=== PATIENT | female | born 1985 | race Caucasian/White ===

== ENCOUNTER 2018-10-03 20:39 | Emergency (ER) | payer OTHER ==
[2018-10-03 20:50] VITALS: TEMP 99; BMI 28.1
--- NOTE | 2018-10-03 20:53 | PDOC ---
Rapid Medical Evaluation Chief Complaint: Chest Pain Time Seen by Provider: 10/03/18 20:48 Medical Evaluation: Allergies Allergy/AdvReac Type Severity Reaction Status Date / Time No Known Allergies Allergy Verified 09/12/11 10:10 10/03/18 20:50 I have performed a brief in-person evaluation of this patient. The patient presents with a chief complaint of: Chest pain today. Since improved. Had similar pain in past but maybe worse now. No sob, diaphoresis, n/v , palpitations, leg pain or swelling. No obvious RF for DVT/PE. Denies illicit drug use Pertinent physical exam findings:stable and well abraham w/ clear chest/lungs I have ordered the following:ekg The patient will proceed to the ED for further evaluation. Discharge Disposition - Diagnosis Chest pain Qualifiers: Chest pain type: unspecified Qualified Code(s): R07.9 - Chest pain, unspecified - Referrals - Patient Instructions - Post Discharge Activity
[2018-10-03] MEDS ORDERED: ACETAMINOPHEN 500 MG TABLET (FP) PO ONE (21:53)
--- NOTE | 2018-10-03 21:59 | PDOC ---
History of Present Illness - General Chief Complaint: Chest Pain Stated Complaint: CHEST PAIN Time Seen by Provider: 10/03/18 20:48 History Source: Patient Exam Limitations: No Limitations - History of Present Illness Initial Comments: 10/03/18 21:56 Pt is a 32yo F with no significant PMH presenting to ED with complaints of chest pain that has been on and off for about 1 year. She states the pain is is in the middle of her chest, feels like someone is sitting on it, does not radiate, associated with SOB and pain with inspiration. She states that she was diagnosed with costochondritis in the past. She does not take any medications for the pain. She denies diaphoresis, pain radiating to shoulders, abdominal pain, pain radiating to the back, syncope, hemoptysis, fevers, chills, cough, congestion, n/v/d, leg swelling, recent travel, recent surgery, smoking, ocp use. FH of [place] in father and grandmother. PMD: none PMH: none PSH: cesarian, tubal ligation Meds: none Allergies: nkda Social: denies Past History - Past Medical History Allergies/Adverse Reactions: Allergies Allergy/AdvReac Type Severity Reaction Status Date / Time No Known Allergies Allergy Verified 09/12/11 10:10 Home Medications: Ambulatory Orders NK [No Known Home Medication] 10/03/18 Asthma: No Cancer: No Cardiac Disorders: No Diabetes: No HTN: No Seizures: No Thyroid Disease: No - Suicide/Smoking/Psychosocial Hx Smoking History: Never smoked Hx Alcohol Use: No Drug/Substance Use Hx: No Hx Substance Use Treatment: No Review of Systems - Review of Systems Constitutional: No: Chills, Fever, Weakness HEENTM: No: Symptoms Reported Respiratory: Yes: Shortness of Breath. No: Cough Cardiac (ROS): Yes: See HPI, Chest Pain, Chest Tightness. No: Lightheadedness, Palpitations, Syncope ABD/GI: No: Constipated, Nausea, Rectal Bleeding, Vomiting, Abdominal cramping : No: Symptoms Reported Musculoskeletal: No: Back Pain, Joint Pain, Neck Pain Integumentary: No: Symptoms Reported Neurological: No: Symptoms reported *Physical Exam - Vital Signs Last Vital Signs Temp Pulse Resp BP Pulse Ox 99 F 77 126/82 99 10/03/18 20:48 10/03/18 20:48 10/03/18 20:48 10/03/18 20:48 - Physical Exam General Appearance: Yes: Nourished, Appropriately Dressed. No: Apparent Distress HEENT: positive: EOMI, ZACKERY Neck: positive: Trachea midline, Supple. negative: Lymphadenopathy (R), Lymphadenopathy (L) Respiratory/Chest: positive: Chest Tender, Lungs Clear, Normal Breath Sounds. negative: Accessory Muscle Use, Labored Respiration, Crackles, Wheezing Cardiovascular: positive: Regular Rhythm, Regular Rate, S1, S2. negative: Edema , JVD, Murmur Vascular Pulses: Carotid (R): 2+, Carotid (L): 2+, Dorsalis-Pedis (R): 2+, Doralis-Pedis (L): 2+ Gastrointestinal/Abdominal: positive: Normal Bowel Sounds, Soft. negative: Tender Musculoskeletal: negative: CVA Tenderness Extremity: positive: Normal Capillary Refill. 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 She states the pain is is in the middle of her chest, feels like someone is sitting on it, does not radiate, associated with SOB and pain with inspiration. She states that she was diagnosed with costochondritis in the past. She does not take any medications for the pain. She denies diaphoresis, pain radiating to shoulders, abdominal pain, pain radiating to the back, syncope, hemoptysis, fevers, chills, cough, congestion, n/v/d, leg swelling, recent travel, recent surgery, smoking, ocp use. Vitals: wnl PE: lungs cta, normal heart sounds, no edema, reproducible chest wall tenderness, pain with arm movements. Ddx includes but not limited to acs, pe, pna, ptx, msk, costochondritis, pneumomediastum, -labs -ekg, cxr -tylenol, ibuprofen. given reproducibility of pain, most likely msk in nature. labs all normal. cxr does not show consolidations or infiltrates, no free air ekg: nsr. no emerald or depressions most likely msk given chronicity and reproducibility. pt hemodynamically stable , safe for dc home. 'pt agrees to plan. given return precautions and cardiology referral. *DC/Admit/Observation/Transfer Diagnosis at time of Disposition: Chest pain Qualifiers: Chest pain type: unspecified Qualified Code(s): R07.9 - Chest pain, unspecified - Discharge Dispostion Disposition: HOME Condition at time of disposition: Good Decision to Admit order: No - Referrals Referrals: Sanchez Potter MD [Staff Physician] - - Patient Instructions Printed Discharge Instructions: DI for Atypical Chest Pain Additional Instructions: You were seen in the emergency room today for chest pain. Your blood tests are normal and the EKG appears normal as well. This is most likely a musculoskeletal pain. You can take NSAIDs like ibuprofen or Advil for the pain as needed. Try not to do heavy lifting. You can apply a heating pad as well. I recommend making an appointment with a primary care doctor and a success coach. The information is provided below. Come back to the emergency room if pain gets worse, you cannot catch a breath, you pass out or if any new concerning symptom develops. Thank you - Post Discharge Activity
[2018-10-03 22:19] LABS: BASO % 0.7 % (0-2.0); EOS % 2.3 % (0-4.5); HEMATOCRIT 36.7 % (32.4-45.2); HEMOGLOBIN 12.9 GM/dL (10.7-15.3); MCH 31.9 pg (25.7-33.7); MCHC 35.1 g/dl (32.0-36.0); MEAN PLT VOLUME 7.7 fl (7.5-11.1); MONO % 8.9 % (3.8-10.2); NEUT % 57.1 % (42.8-82.8); PLATELET COUNT 247 K/MM3 (134-434); RBC 4.03 M/mm3 (3.60-5.2); RDW 12.5 % (11.6-15.6); WHITE BLOOD COUNT 8.6 K/mm3 (4.0-10.0)
[2018-10-03 22:41] LABS: ALBUMIN 3.4 g/dl (3.4-5.0); ALK PHOS 76 U/L (45-117); ANION GAP 6 MMOL/L (8-16); BILIRUBIN,TOTAL 0.8 mg/dL (0.2-1); BLOOD UREA NITROGEN 16 mg/dL (7-18); CALCIUM 8.9 mg/dL (8.5-10.1); CHLORIDE 106 mmol/L (98-107); CO2 27 mmol/L (21-32); CREATININE 0.8 mg/dL (0.55-1.3); GLUCOSE,RANDOM 103 mg/dL (74-106); MAGNESIUM 2.2 mg/dL (1.8-2.4); SGOT/AST 18 U/L (15-37); SGPT/ALT 26 U/L (13-61); SODIUM 139 mmol/L (136-145); TOT PROT 6.6 g/dl (6.4-8.2)
[2018-10-03] MEDS ORDERED: IBUPROFEN 600 MG TABLET (FP) PO ONE ×2 (22:52→23:22)
[2018-10-03] MEDS ORDERED: ACETAMINOPHEN 325 MG TABLET (FP) ONE (23:21)
[2018-10-03 23:42] VITALS: BP 120/80; PULSE 94
--- NOTE | 2018-10-04 00:13 | PDOC ---
Documentation entered by Judith Garrett SCRIBE, acting as scribe for Paula Thornton MD. Paula Thornton MD: This documentation has been prepared by the abner, Judith Garrett SCRIBE, under my direction and personally reviewed by me in its entirety. I confirm that the documentation accurately reflects all work, treatment, procedures, and medical decision making performed by me. Attending Attestation - Resident Resident Name: Libertad Carty - ED Attending Attestation I have performed the following: I have examined & evaluated the patient, The case was reviewed & discussed with the resident, I agree w/resident's findings & plan - HPI HPI: 10/03/18 22:54 The patient is a 32 year old female with no significant past medical history who presents to the emergency department with intermittent chest pain for 1 year. The patient report that her chest pain is localized to her mid chest and feels like someone is sitting on her chest. She reports some associates shortness of breath and pain with inspiration. The patient states that her chest pain is worsened with movement. She endorses a past diagnosis of costochondritis and a family history of DC ( father and grandmother). She denies any fever, chills, nausea, vomiting, diarrhea, constipation, urinary symptoms. She denies any diaphoresis, abdominal pain, syncope radiation to her back or shoulders, hemoptysis, leg swelling, recent travel or recent surgeries. The patient denies any other complaints. - Physicial Exam PE: 10/04/18 00:41 Agree with resident exam - Medical Decision Making 10/04/18 00:41 Pt will be discharged home and referred to a hop farm worker.
--- NOTE | 2018-10-04 15:09 | EKG ---
Test Reason : Blood Pressure : / mmHG Vent. Rate : 064 BPM Atrial Rate : 064 BPM P-R Int : 130 ms QRS Dur : 088 ms QT Int : 434 ms P-R-T Axes : 035 065 051 degrees QTc Int : 447 ms SINUS RHYTHM WITH MARKED SINUS ARRHYTHMIA OTHERWISE NORMAL ECG NO PREVIOUS ECGS AVAILABLE Confirmed by LEONIE VANCE MD ([id number]) on 10/04/2018 3:09:38 PM Referred By: Confirmed By:LEONIE VANCE MD
== END 2018-10-03 23:42 | disposition home or self-care (01) ==
LOC: JER 20:39
DX: R07.9 Chest pain, unspecified (principal)
CPT/HCPCS: 36415; 71046-TC-FY; 80053; 83735; 84484; 84703; 85025; 93005; 93010; 99282-25

== ENCOUNTER 2018-12-27 01:56 | Emergency (ER) | payer OTHER ==
[2018-12-27] MEDS ORDERED: SODIUM CHLORIDE 1,000 ML IV STA (02:35)
[2018-12-27] MEDS ORDERED: IBUPROFEN 400 MG TABLET (FP) PO ONE ×2 (02:36→03:08)
[2018-12-27] MEDS ORDERED: MECLIZINE HCL 25 MG TABLET (FP) PO ONE (02:39)
--- NOTE | 2018-12-27 02:46 | PDOC ---
Attending Attestation - Resident Resident Name: William Frausto - ED Attending Attestation I have performed the following: I have examined & evaluated the patient, The case was reviewed & discussed with the resident, I agree w/resident's findings & plan - HPI HPI: 12/27/18 04:15 Pt comes with lightheadedness. States that she felt like her head was numb after she woke up and she got nervous and she came to the ER. She has no such feeling at this time.. Pt has no appetite change and no fever and no other complaints and no neuro deficits. - Physicial Exam PE: 12/27/18 04:17 Agree with resident exam. Pt has sligt dizziness with horizontal gaze and minimal horizontal nystagmus. She has no fever. HEENT otherwise normal. Neuro intact thoughout. Pt is A+Ox3 and she has no neuro deficits. - Medical Decision Making 12/27/18 04:18 labs normal. Pt feels well after hydration and after meclizine. Home with meclizine and neruro follow up as needed. Heart Score/ECG Review - ECG Intrepretation Rhythm: Regular Rhythm - Crandall Crandall: Normal - P and [place] Delta Wave(s) Present: No WPW: No - ST and T Early Repolarization: No Non Specific ST-T Wave changes: No - ECG Impressions Normal ECG: Yes Non-specific ST Elevation: No Ischemic Changes: No Bradycardia: No Torsades luis Pointes: No
--- NOTE | 2018-12-27 02:55 | PDOC ---
History of Present Illness - General History Source: Patient Exam Limitations: No Limitations - History of Present Illness Initial Comments: Jayce Shrestha is a 33 yo F with a pmh of migraines and a significant family hx of heart diseases who presents to the ER after she had a mild headache 2 hours prior to arrival. The patient states she is also experiencing mild dizziness described as a room spinning sensation which is worsened when the patient lies down or moves her head in certain directions. She states she also has occasionally been experiencing some mild blurry vision when the room spins. She states she also experienced a transient episode of numbness on the back of her head earlier today when she had a headache. Lastly, she states that yesterday she experienced some chest pain which she described as heaviness in quality. Her chest pain yesterday came on at rest and was not associated with any nausea , vomiting, diaphoresis, radiation, or worsening with physical activity. Patient denies recent fevers, chills, infections, SOB, difficulty breathing, neck pain, weakness, tingling, dysuria, frequency, urgency, syncope, unsteady gait, or slurring of her words. PCP: None PSH: C-sections, Tubal ligation Social Hx: Drinks recreationally. Denies smoking or illicit drug usage. Allergies: Seasonal, NKDA <William Frausto - Last Filed: 12/27/18 04:28> <Paula Thornton - Last Filed: 12/27/18 05:45> - General Chief Complaint: Lightheaded Stated Complaint: SEVERE HEADACHE Time Seen by Provider: 12/27/18 02:28 Past History - Past Medical History Asthma: No Cancer: No Cardiac Disorders: No COPD: No Diabetes: No HTN: No Seizures: No Thyroid Disease: No - Immunization History Td Vaccination: Yes TDAP Vaccination: Yes Immunization Up to Date: Yes - Suicide/Smoking/Psychosocial Hx Smoking History: Never smoked Hx Alcohol Use: No Drug/Substance Use Hx: No Hx Substance Use Treatment: No <William Frausto - Last Filed: 12/27/18 04:28> <Paula Thornton - Last Filed: 12/27/18 05:45> - Past Medical History Allergies/Adverse Reactions: Allergies Allergy/AdvReac Type Severity Reaction Status Date / Time No Known Allergies Allergy Verified 09/12/11 10:10 Home Medications: Ambulatory Orders Meclizine HCl [Antivert -] 25 mg PO QID #28 tablet 12/27/18 Review of Systems - Review of Systems Able to Perform ROS?: Yes Comments:: CONSTITUTIONAL: Absent: fever, no chills, no fatigue EYES: Present" visual changes ENT: Absent: ear pain, no sore throat CARDIOVASCULAR: Present: Chest pain Absent: no palpitations RESPIRATORY: Absent: cough, no SOB GI: Absent: abdominal pain, no nausea, no vomiting, no constipation, no diarrhea GENITOURINARY: Absent: dysuria, no frequency, no hematuria MUSKULOSKELETAL: Absent: back pain, no arthralgia, no myalgia SKIN: Absent: rash NEURO: Present: headache <William Frausto - Last Filed: 12/27/18 04:28> *Physical Exam - Physical Exam Comments: GENERAL: Well-appearing, well-nourished. No apparent distress. HEENT: Normocephalic, atraumatic. PERRL, EOM intact. CARDIOVASCULAR: Normal S1, S2. Regular rate and rhythm. PULMONARY: No evidence of respiratory distress. Lungs clear to auscultation bilaterally. No wheezing, rales or rhonchi. ABDOMEN: Soft, non-distended, non-tender. EXTREMITIES: Normal ROM in all four extremities. No gross deformities. SKIN: Warm, dry. No rash NEUROLOGICAL: Alert, awake, appropriate. Cranial nerves 2-12 intact. No deficits to light touch in face, upper extremities and lower extremities. No motor deficits in the in face, upper extremities and lower extremities. Normal speech. Gait is normal without ataxia. PSYCHIATRIC: Anxious affect. Cooperative. Good eye contact. Appropriate mood. <William Frausto - Last Filed: 12/27/18 04:28> - Vital Signs Last Vital Signs Temp Pulse Resp BP Pulse Ox 98.3 F 76 135/82 98 12/27/18 02:30 12/27/18 02:30 12/27/18 02:30 12/27/18 02:30 <Paula Thornton - Last Filed: 12/27/18 05:45> Heart Score/ECG Review - ECG Intrepretation Rhythm: Regular Rhythm - Helotes Helotes: Normal - P and [place] Prominent R with upright T in V1 (true posterior [place]): No - QRS Q Wave Present: No - ST and T Early Repolarization: No Non Specific ST-T Wave changes: No Flattened T Waves: No Prolonged Q-T Interval: No - ECG Impressions Normal ECG: Yes Non-specific ST Elevation: No Ischemic Changes: No <[email or web address] - Last Filed: 12/27/18 04:28> ED Treatment Course - LABORATORY CBC & Chemistry Diagram: 12/27/18 03:00 12/27/18 03:00 <William Frausto - Last Filed: 12/27/18 04:28> - LABORATORY CBC & Chemistry Diagram: 12/27/18 03:00 12/27/18 03:00 - ADDITIONAL ORDERS Additional order review: Laboratory Results 12/27/18 12/27/18 12/27/18 03:00 03:00 03:00 Sodium Potassium Chloride Carbon Dioxide Anion Gap BUN Creatinine Est GFR (CKD-EPI)AfAm Est GFR (CKD-EPI)NonAf Random Glucose Calcium Total Bilirubin AST ALT Alkaline Phosphatase Troponin I < 0.02 Total Protein Albumin Urine Color Yellow Urine Appearance Turbid Urine pH 7.5 Ur Specific Conway 1.018 Urine Protein Negative Urine Glucose (UA) Negative Urine Ketones Negative Urine Blood Negative Urine Nitrite Negative Urine Bilirubin Negative Urine Urobilinogen 0.2 Ur Leukocyte Esterase Trace Urine WBC (Auto) 10 Urine Casts (Auto) 4 U Epithel Cells (Auto) 17.2 Urine Bacteria (Auto) 923.6 Urine HCG, Qual Negative 12/27/18 03:00 Sodium 140 Potassium 3.7 Chloride 107 Carbon Dioxide 27 Anion Gap 6 L BUN 13.0 Creatinine 0.8 Est GFR (CKD-EPI)AfAm 111.48 Est GFR (CKD-EPI)NonAf 96.19 Random Glucose 110 H Calcium 9.2 Total Bilirubin 1.0 AST 16 ALT 24 Alkaline Phosphatase 84 Troponin I Total Protein 7.4 Albumin 4.0 Urine Color Urine Appearance Urine pH Ur Specific Conway Urine Protein Urine Glucose (UA) Urine Ketones Urine Blood Urine Nitrite Urine Bilirubin Urine Urobilinogen Ur Leukocyte Esterase Urine WBC (Auto) Urine Casts (Auto) U Epithel Cells (Auto) Urine Bacteria (Auto) Urine HCG, Qual 12/27/18 03:00 RBC 4.65 MCV 91.0 MCHC 34.8 RDW 12.5 MPV 7.9 Neutrophils % 54.6 Lymphocytes % 33.9 Monocytes % 8.9 Eosinophils % 2.0 Basophils % 0.6 - Medications Given in the ED: ED Medications Discontinued Medications Generic Name Dose Route Start Last Admin Trade Name Amber PRN Reason Stop Dose Admin Sodium Chloride 1,000 mls @ 1,000 mls/hr 12/27/18 02:35 12/27/18 03:18 Normal Saline - IV 12/27/18 03:34 1,000 mls/hr ASDIR STA Administration Ibuprofen 800 mg 12/27/18 02:36 12/27/18 03:18 Motrin - PO 12/27/18 02:37 800 mg ONCE ONE Administration Meclizine HCl 50 mg 12/27/18 02:39 12/27/18 03:19 Antivert - PO 12/27/18 02:40 50 mg ONCE ONE Administration <Paula Thornton - Last Filed: 12/27/18 05:45> Medical Decision Making - Medical Decision Making Jayce Shrestha is a 33 yo F with a pmh of migraines and a significant family hx of heart diseases who presents to the ER after she had a mild headache 2 hours prior to arrival. The patient states she is also experiencing mild dizziness described as a room spinning sensation which is worsened when the patient lies down or moves her head in certain directions. She states she also has occasionally been experiencing some mild blurry vision when the room spins. She states she also experienced a transient episode of numbness on the back of her head earlier today when she had a headache. Lastly, she states that yesterday she experienced some chest pain which she described as heaviness in quality. Her chest pain yesterday came on at rest and was not associated with any nausea , vomiting, diaphoresis, radiation, or worsening with physical activity. DDx IBNLT: vertigo, dehydration, electrolyte/metabolic disturbance, ACS/KS, Arrhythmia, BPPV, UTI/Pylo, - IUP vs ectopic Plan: Labs, Urine, EKG, IV hydration, analgesia, meclizine, re-assess. Labs: Normal without acute abnormalities Urine: Trace LE with many bacteria. Will not treat empirically but if culture grows organisms will treat. EKG: NS Rate of 72, narrow complex, normal axis, no hypertrophy, no ST elevations or depressions, no abnormal TWI, [place] - 134, QTc - 453 Re-assessment: Patient feels better after meds and has no current complaints. Disposition: Home with script for meclizine and PCP fu <William Frausto - Last Filed: 12/27/18 04:28> *DC/Admit/Observation/Transfer - Discharge Dispostion Decision to Admit order: No <William Frausto - Last Filed: 12/27/18 04:28> <Paula Thornton - Last Filed: 12/27/18 05:45> Diagnosis at time of Disposition: Numbness, Anxiety, Dizziness, Vertigo Headache Qualifiers: Headache type: unspecified Headache chronicity pattern: unspecified pattern Intractability: not intractable Qualified Code(s): R51 - Headache - Discharge Dispostion Disposition: HOME Condition at time of disposition: Improved - Prescriptions Prescriptions: Meclizine HCl [Antivert -] 25 mg PO QID #28 tablet - Referrals Referrals: [facility] [place] [Provider Group] - Patient Instructions Printed Discharge Instructions: Vertigo (Alternative Therapy), Benign Paroxysmal Positional Vertigo, DI for Vertigo Additional Instructions: You came into the ER with numbness and room spinning dizziness. We believe you are suffering from vertigo. 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 Please make sure to pick it up and take as needed for room spinning dizziness. Please make sure to call up the primary care doctor we are referring you to and schedule an appointment for follow up in the next 3 to 5 days to make sure you are being taken care of and getting better. Come back to the ER immediately if your pain worsens, you feel weak, nauseous, start vomiting, get a fever, have a headache, or any other new or worsening concerns. Thank you for coming to the [facility] ER. We hope you feel better soon! Print Language: BELARUSIAN
[2018-12-27] MEDS ORDERED: MECLIZINE HCL 25 MG TABLET (FP) ONE (03:08)
[2018-12-27 03:16] LABS: HEMOGLOBIN 14.7 GM/dL (10.7-15.3); MCH 31.6 pg (25.7-33.7); MEAN PLT VOLUME 7.9 fl (7.5-11.1); RBC 4.65 M/mm3 (3.60-5.2); RDW 12.5 % (11.6-15.6)
[2018-12-27 03:22] LABS: EPI CELLS 17.2 /HPF (0-5/HPF); HYALINE CASTS 4 /lpf (0-8); PH,URINE 7.5 (5.0-8.0); URINE APPEARANCE TURBID; URINE BACTERIA 923.6 /hpf (NEGATIVE); URINE BILIRUBIN NEGATIVE (NEGATIVE); URINE COLOR YELLOW; URINE GLUCOSE (UA) NEGATIVE (NEGATIVE); URINE KETONE NEGATIVE (NEGATIVE); URINE LEUK ESTERASE TRACE (NEGATIVE); URINE NITRITE NEGATIVE (NEGATIVE); URINE PROTEIN NEGATIVE (NEGATIVE); URINE UROBILINOGEN 0.2 mg/dL (0.2-1.0); URINE WBC 10 /hpf (0-5)
[2018-12-27 03:23] LABS: BASO % 0.6 % (0-2.0); HEMATOCRIT 42.3 % (32.4-45.2); LYMPH % 33.9 % (8-40); MCHC 34.8 g/dl (32.0-36.0); MONO % 8.9 % (3.8-10.2); NEUT % 54.6 % (42.8-82.8); PLATELET COUNT 252 K/MM3 (134-434); WHITE BLOOD COUNT 6.9 K/mm3 (4.0-10.0)
[2018-12-27 03:29] VITALS: BP 135/82; PULSE 76; TEMP 98.3; BMI 27.3
[2018-12-27 03:39] LABS: CALCIUM 9.2 mg/dL (8.5-10.1); CREATININE 0.8 mg/dL (0.55-1.3); POTASSIUM 3.7 mmol/L (3.5-5.1); TOT PROT 7.4 g/dl (6.4-8.2)
[2018-12-27 07:01] LABS: URINE RBC 0 /hpf (0-4)
--- NOTE | 2018-12-28 00:02 | EKG ---
Test Reason : Blood Pressure : / mmHG Vent. Rate : 072 BPM Atrial Rate : 072 BPM P-R Int : 134 ms QRS Dur : 078 ms QT Int : 414 ms P-R-T Axes : 045 065 035 degrees QTc Int : 453 ms NORMAL SINUS RHYTHM WITH SINUS ARRHYTHMIA NORMAL ECG WHEN COMPARED WITH ECG OF 03-OCT-2018 21:00, NO SIGNIFICANT CHANGE WAS FOUND Confirmed by MARCK PARKER MD ([id number]) on 12/28/2018 12:01:18 AM Referred By: Confirmed By:MARCK PARKER MD
== END 2018-12-27 04:48 | disposition home or self-care (01) ==
LOC: JER 01:56
PROC: 3E0337Z Introduction of Electrolytic and Water Balance Substance into Peripheral Vein, Percutaneous Approach (ICD-10-PCS; principal; 2018-12-27)
DX: R51 Headache (principal); F41.9 Anxiety disorder, unspecified; R20.0 Anesthesia of skin; R42 Dizziness and giddiness
CPT/HCPCS: 36415; 80053; 81003; 84484; 84703; 85025; 93005; 93010; 99282-25; J7030